=== PATIENT | female | born 1965 | race African-American/Black ===

== ENCOUNTER 2017-10-14 12:43 | Emergency (ER) | payer OTHER, BC ==
[2017-10-14 12:56] VITALS: BP 158/83
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
== END 2017-10-14 13:35 | disposition home or self-care (01) ==
LOC: ER 12:43
DX: S13.4XXA Sprain of ligaments of cervical spine, initial encounter (principal); M54.2 Cervicalgia; V49.40XA Driver injured in collision with unspecified motor vehicles in traffic accident, initial encounter; I10 Essential (primary) hypertension; Z87.892 Personal history of anaphylaxis; Z88.8 Allergy status to other drugs, medicaments and biological substances
CPT/HCPCS: 99283

== ENCOUNTER 2019-09-06 19:20 | Emergency (ER) | payer OTHER, BC ==
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
[2019-09-06 19:57] VITALS: BP 153/75
[2019-09-06] MEDS ORDERED: ONDANSETRON 4 MG TAB.RAPDIS PO ONE (20:03)
[2019-09-06] MEDS ORDERED: ACETAMINOPHEN 325 MG TABLET PO ONE (20:03)
== END 2019-09-06 20:10 | disposition home or self-care (01) ==
LOC: ER 19:20
DX: S09.90XA Unspecified injury of head, initial encounter (principal); R11.0 Nausea; V89.2XXA Person injured in unspecified motor-vehicle accident, traffic, initial encounter; I10 Essential (primary) hypertension; Z90.710 Acquired absence of both cervix and uterus
CPT/HCPCS: 99283; S0119